=== PATIENT | female | born 1945 | race Caucasian/White ===

== ENCOUNTER 2017-09-03 09:23 | Day surgery (SDC) | payer MEDICAID, MEDICARE ==
[2017-09-03] MEDS ORDERED: Lidocaine Hydrochloride 5 ML INJ ONE (10:52)
[2017-09-03] MEDS ORDERED: Propofol 10 mg/ml Inj (20 ML) ONE (10:52)
[2017-09-03 11:45] VITALS: RESP 14
[2017-09-03 13:56] VITALS: BP 131/53; PULSE 79; TEMP 96.7; O2SAT 99
== END 2017-09-03 12:45 | disposition home or self-care (01) ==
LOC: C.ENDO 09:23
PROVIDERS: ATTEND Internal Medicine
DX: Z12.11 Encounter for screening for malignant neoplasm of colon (principal); D12.2 Benign neoplasm of ascending colon; D12.3 Benign neoplasm of transverse colon; K63.5 Polyp of colon; K62.1 Rectal polyp; K64.8 Other hemorrhoids
CPT/HCPCS: 45380; 88305; J2704